=== PATIENT | male | born 1970 | race Two or more races ===

== ENCOUNTER 2018-07-12 00:01 | Day surgery (SDC) | payer BC ==
[~2018-07-12 00:01] MED LIST: CEPH500 PO; CHOL10002 PO; CIPR500 PO; DEXAMETHASONE; DIPH50 PO; DOCUSATE; Dulcolax5 MG PO; EPIN.3I; EPIN.3I IM; Flomax0.4 MG PO; HYDACE10B PO; HYDACE5 PO; HYDMOR2 PO; HYDPAM50 PO; KAPIDEX; KETO10 PO; LENZESS; LISI20 PO; LORA.5 PO; LORA10ER PO; METO10 PO; METR500 PO; MULT50L PO; Miralax17 GM PO; NAPR500 PO; NORT10 PO; OMEP20ER PO; ONDA4 PO; ONDA4ODT MM; OXYACE5T PO; OXYC5 PO; PROM25 PO; PSYL5.85P PO; Percocet 5-3251 EACH PO; Prednisone20 MG PO; RXHYDMOR2 PO; TAMS.4ER PO; TREXIMET; ZESTORETIC 20-121 EA PO
== END 2018-07-12 09:49 | disposition home or self-care (01) ==
LOC: ATC 00:01
DX: D69.1 Qualitative platelet defects (principal)
CPT/HCPCS: 96365; J2597

== ENCOUNTER → 2019-06-14 | Outpatient (CLI) | payer BC | END | disposition home or self-care (01) | LOC: LAB 20:02 → LAB SHORT 20:02 | DX: M54.5 Low back pain (principal) | CPT/HCPCS: 87086 ==

== ENCOUNTER 2020-04-26 10:03 | Emergency (ER) | payer BC ==
[~2020-04-26 10:03] MED LIST changes: +BUPRENORPHINE1 EAC9 TD; +OLMESARTAN MEDO40 MG PO
== END 2020-04-26 10:38 | disposition left against medical advice (07) ==
LOC: ER 10:03
DX: Z53.21 Procedure and treatment not carried out due to patient leaving prior to being seen by health care provider (principal)

== ENCOUNTER 2020-09-21 17:24 | Emergency (ER) | payer OTHER ==
[~2020-09-21] VITALS: Ht 170.2 cm; Wt 94.8 kg
[2020-09-21 17:57] LABS: Source, Urine Clean Catch
[2020-09-21 18:05] LABS: Appearance, Urine Clear (Clear); Bilirubin, Urine Neg (Neg); Blood, Urine 2+ (Neg); Color, Urine Yellow (P-Yellow); Glucose Qualitative, Urine Neg (Neg); Ketones, Urine Neg (Neg); Leukocyte Esterase, Urine 1+ (Neg); Nitrite, Urine Neg (Neg); Protein, Urine 1+ (Neg); Specific Gravity, Urine 1.025 (1.003-1.022); Urobilinogen, Urine 1+ (Normal)
[2020-09-21 18:05] LABS: BASOPHILS ABSOLUTE AUTO 0.02 K/mm3 (0.00-0.23); BASOPHILS PERCENT AUTO 0 % (0-2); EOSINOPHILS ABSOLUTE AUTO 0.07 K/mm3 (0.00-0.68); EOSINOPHILS PERCENT AUTO 1 % (0-6); Hematocrit 47.5 % (37.0-53.0); Hemoglobin 16.9 g/dL (13.5-17.5); IMMATURE GRAN ABSOLUTE AUTO 0.03 K/mm3 (0.00-0.10); IMMATURE GRAN PERCENT AUTO 0 % (0-1); LYMPHOCYTES ABSOLUTE AUTO 1.37 K/mm3 (0.84-5.20); LYMPHOCYTES PERCENT AUTO 16 % (21-46); MONOCYTES ABSOLUTE AUTO 0.71 K/mm3 (0.16-1.47); MONOCYTES PERCENT AUTO 8 % (4-13); Mean Corpuscular HGB 29.7 pg (26.0-34.0); Mean Corpuscular HGB Conc 35.6 g/dL (31.5-36.5); Mean Corpuscular Volume 84 fL (80-100); Mean Platelet Volume 12.7 fL (9.1-12.4); NEUTROPHILS ABSOLUTE AUTO 6.53 K/mm3 (1.96-9.15); NEUTROPHILS PERCENT AUTO 75 % (41-73); Platelet Count 146 K/mm3 (150-400); RDW Coefficient Variation 12.5 % (11.7-14.2); RDW Standard Deviation 37.9 fL (35.1-46.3); Red Blood Cell Count 5.69 M/mm3 (4.30-5.90); White Blood Cell Count 8.73 K/mm3 (4.00-11.30)
[2020-09-21] MEDS ORDERED: LISI5 PO (18:11)
[2020-09-21] MEDS ORDERED: Catapres0.2 MG PO (18:11)
[2020-09-21] MEDS ORDERED: HYDCHL12.5 (18:12)
[2020-09-21 18:32] LABS: Bacteria Few /hpf; Hyaline Casts 0-2 /lpf (0-2); Mucus Light (0-Heavy); Squamous Epithelial Cells Few /hpf (Few)
[2020-09-21 18:35] LABS: Alanine Aminotransfer (ALT/SGP 29 U/L (12-78); Albumin, Blood 3.6 g/dL (3.4-5.0); Albumin/Globulin Ratio 1.2 (0.8-1.8); Alk Phos 70 U/L (50-136); Anion Gap 4 mmol/L (6-16); Aspartate Aminotrans (AST/SGOT 17 U/L (12-37); Bilirubin, Total 0.5 mg/dL (0.1-1.0); Blood Urea Nitrogen 15 mg/dL (8-24); CO2, Blood 28 mmol/L (21-32); Calcium, Blood 8.9 mg/dL (8.5-10.1); Chloride, Blood 110 mmol/L (98-108); Creatinine, Blood 0.65 mg/dL (0.60-1.20); Globulin, Blood 3.1 g/dL (2.2-4.0); Glomerular Filtration Rate >60 (60-); Glucose, Blood 105 mg/dL (70-99); Potassium, Blood 3.4 mmol/L (3.5-5.5); Sodium, Blood 142 mmol/L (136-145); Total Protein, Blood 6.7 g/dL (6.4-8.2); Troponin I <0.015 ng/mL (0.000-0.040)
[2020-09-21] MEDS ORDERED: Pepcid20 MG PO (19:26)
== END 2020-09-21 19:39 | disposition home or self-care (01) ==
LOC: ER 17:24
PROVIDERS: Physician Assistant
DX: R07.9 Chest pain, unspecified (principal); Z79.899 Other long term (current) drug therapy
CPT/HCPCS: 71046; 80053; 81001; 83690; 84484; 85025; 87086; 93005; 93010; 99285-25

== ENCOUNTER 2020-09-27 22:20 | Emergency (ER) | payer OTHER ==
[~2020-09-27] VITALS: Ht 170.2 cm; Wt 90.7 kg
[~2020-09-27 22:20] MED LIST changes: +Catapres0.2 MG PO; +HYDCHL12.5; +LISI5 PO; +Pepcid20 MG PO
[2020-09-27 22:59] LABS: BASOPHILS ABSOLUTE AUTO 0.03 K/mm3 (0.00-0.23); BASOPHILS PERCENT AUTO 0 % (0-2); EOSINOPHILS ABSOLUTE AUTO 0.11 K/mm3 (0.00-0.68); EOSINOPHILS PERCENT AUTO 1 % (0-6); Hematocrit 52.9 % (37.0-53.0); IMMATURE GRAN ABSOLUTE AUTO 0.06 K/mm3 (0.00-0.10); IMMATURE GRAN PERCENT AUTO 1 % (0-1); LYMPHOCYTES ABSOLUTE AUTO 1.47 K/mm3 (0.84-5.20); LYMPHOCYTES PERCENT AUTO 13 % (21-46); MONOCYTES ABSOLUTE AUTO 0.56 K/mm3 (0.16-1.47); MONOCYTES PERCENT AUTO 5 % (4-13); Mean Corpuscular HGB 29.6 pg (26.0-34.0); Mean Corpuscular Volume 87 fL (80-100); NEUTROPHILS ABSOLUTE AUTO 8.94 K/mm3 (1.96-9.15); NEUTROPHILS PERCENT AUTO 80 % (41-73); Platelet Count 140 K/mm3 (150-400); RDW Coefficient Variation 12.9 % (11.7-14.2); Red Blood Cell Count 6.09 M/mm3 (4.30-5.90); White Blood Cell Count 11.17 K/mm3 (4.00-11.30)
[2020-09-27 23:01] LABS: Mean Platelet Volume 13.4 fL (9.1-12.4)
[2020-09-27 23:15] LABS: Alanine Aminotransfer (ALT/SGP 44 U/L (12-78); Albumin, Blood 4.3 g/dL (3.4-5.0); Albumin/Globulin Ratio 1.1 (0.8-1.8); Alk Phos 76 U/L (50-136); Anion Gap 6 mmol/L (6-16); Aspartate Aminotrans (AST/SGOT 24 U/L (12-37); Bilirubin, Total 0.5 mg/dL (0.1-1.0); Blood Urea Nitrogen 10 mg/dL (8-24); Bun/Creatinine Ratio 14.1 (12.0-20.0); CO2, Blood 27 mmol/L (21-32); Calcium, Blood 9.2 mg/dL (8.5-10.1); Chloride, Blood 107 mmol/L (98-108); Creatinine, Blood 0.71 mg/dL (0.60-1.20); Ethanol (Alcohol), Blood, Med 190 mg/dL; Globulin, Blood 3.9 g/dL (2.2-4.0); Glomerular Filtration Rate >60 (60-); Glucose, Blood 99 mg/dL (70-99); Potassium, Blood 3.6 mmol/L (3.5-5.5); Sodium, Blood 140 mmol/L (136-145); Total Protein, Blood 8.2 g/dL (6.4-8.2)
== END 2020-09-28 00:18 | disposition home or self-care (01) ==
LOC: ER 22:20
PROVIDERS: Emergency Medicine
DX: F10.129 Alcohol abuse with intoxication, unspecified (principal)
CPT/HCPCS: 80053; 85025; 96374; 99284-25; A9270; G0480; J2405; J7030

== ENCOUNTER → 2021-11-11 | Outpatient (CLI) | payer OTHER | END | disposition home or self-care (01) | LOC: LAB 17:12 → LAB SHORT 17:12 | DX: N39.0 Urinary tract infection, site not specified (principal) | CPT/HCPCS: 87086 ==

== ENCOUNTER → 2021-11-21 | Outpatient (CLI) | payer OTHER | END | disposition home or self-care (01) | LOC: LAB SHORT 16:54 → LAB 16:54 | DX: N39.0 Urinary tract infection, site not specified (principal) | CPT/HCPCS: 87086 ==

== ENCOUNTER 2023-06-21 00:09 | Observation (INO) | payer BC, OTHER ==
[~2023-06-21] VITALS: Ht 170.2 cm; Wt 113.4 kg
[2023-06-21 00:35] LABS: BASOPHILS ABSOLUTE AUTO 0.03 K/mm3 (0.00-0.23); BASOPHILS PERCENT AUTO 0 % (0-2); EOSINOPHILS PERCENT AUTO 1 % (0-6); Hematocrit 48.1 % (37.0-53.0); Hemoglobin 16.4 g/dL (13.5-17.5); IMMATURE GRAN ABSOLUTE AUTO 0.05 K/mm3 (0.00-0.10); IMMATURE GRAN PERCENT AUTO 1 % (0-1); LYMPHOCYTES ABSOLUTE AUTO 1.11 K/mm3 (0.84-5.20); LYMPHOCYTES PERCENT AUTO 12 % (21-46); MONOCYTES ABSOLUTE AUTO 0.54 K/mm3 (0.16-1.47); MONOCYTES PERCENT AUTO 6 % (4-13); Mean Corpuscular HGB 28.9 pg (26.0-34.0); Mean Corpuscular HGB Conc 34.1 g/dL (31.5-36.5); Mean Corpuscular Volume 85 fL (80-100); NEUTROPHILS ABSOLUTE AUTO 7.12 K/mm3 (1.96-9.15); NEUTROPHILS PERCENT AUTO 80 % (41-73); Platelet Count 118 K/mm3 (150-400); RDW Coefficient Variation 13.2 % (11.7-14.2); RDW Standard Deviation 41.1 fL (35.1-46.3); Red Blood Cell Count 5.68 M/mm3 (4.30-5.90); White Blood Cell Count 8.95 K/mm3 (4.00-11.30)
[2023-06-21] MEDS ORDERED: HYDROmorphone HCl/Pf 1MG SYR IV ONE (00:35)
[2023-06-21] MEDS ORDERED: Ondansetron HCl 2 MG / ML 2ML Vial IV ONE (00:35)
[2023-06-21 00:36] LABS: Mean Platelet Volume 13.6 fL (9.1-12.4)
[2023-06-21 00:52] LABS: Albumin, Blood 3.5 g/dL (3.4-5.0); Albumin/Globulin Ratio 1.1 (0.8-1.8); Bilirubin, Total 0.4 mg/dL (0.1-1.0); Bun/Creatinine Ratio 28.4 (12.0-20.0); Calcium, Blood 9.9 mg/dL (8.5-10.1); Creatinine, Blood 0.7 mg/dL (0.60-1.20); Globulin, Blood 3.2 g/dL (2.2-4.0); Magnesium, Blood 1.9 mg/dL (1.6-2.4); Potassium, Blood 3.9 mmol/L (3.5-5.5); Total Protein, Blood 6.7 g/dL (6.4-8.2)
[2023-06-21 00:52] LABS: Source, Urine Clean Catch
[2023-06-21 00:58] LABS: Appearance, Urine Cloudy (Clear); Bilirubin, Urine Neg (Neg); Blood, Urine 2+ (Neg); Glucose Qualitative, Urine Neg (Neg); Ketones, Urine Neg (Neg); Leukocyte Esterase, Urine Neg (Neg); Nitrite, Urine Neg (Neg); Protein, Urine Neg (Neg); Specific Gravity, Urine 1.015 (1.003-1.022); Urobilinogen, Urine NORM (Normal)
[2023-06-21 01:02] LABS: Color, Urine Pale Yellow (P-Yellow)
[2023-06-21 01:04] LABS: Bacteria Not Seen /hpf; Red Blood Cells, Urine 0-2 /hpf (0-2); Squamous Epithelial Cells Not Seen /hpf (Few); White Blood Cells, Urine 0-2 /hpf (0-5)
[2023-06-21 01:05] LABS: Mucus Mod (0-Heavy)
[2023-06-21] MEDS ORDERED: Droperidol 5 mg/2 ml Vial IV ONE (02:55)
[2023-06-21] MEDS ORDERED: Ampicillin Sod/Sulbactam Sod 3 GM in NS 100 ML IV ONE (03:05)
[2023-06-21] MEDS ORDERED: FentaNYL Citrate 50 MCG/ML 2 ML Injection IV PRN (03:10)
[2023-06-21] MEDS ORDERED: METFORMIN HCL500 M3 PO (03:18)
[2023-06-21] MEDS ORDERED: TAMSULOSIN HCL0.4 M1 PO (03:18)
[2023-06-21] MEDS ORDERED: POTASSIUM CITRA PO (03:18)
[2023-06-21 03:58] VITALS: BP 182/120
[2023-06-21] MEDS ORDERED: HydrALAZINE HCl 20 MG / ML 1ML Vial IV PRN (04:45)
[2023-06-21] MEDS ORDERED: Metoclopramide HCl 5MG / ML 2ML Vial IV PRN (04:45)
[2023-06-21] MEDS ORDERED: CloNIDine HCl 0.2 MG Tab PO SCH (04:50)
[2023-06-21] MEDS ORDERED: Lactated Ringer's 1,000 ML IV SCH (05:20)
[2023-06-21 07:23] VITALS: BP 147/110
[2023-06-21] MEDS ORDERED: Acetaminophen 325 MG TABLET PO PRN (07:50)
[2023-06-21] MEDS ORDERED: OxyCODONE HCL 5 MG TAB PO PRN (07:50)
[2023-06-21] MEDS ORDERED: Ondansetron HCl 2 MG / ML 2ML Vial IV PRN (07:50)
[2023-06-21] MEDS ORDERED: HYDROmorphone HCl/Pf 1MG SYR IV PRN (07:50)
[2023-06-21] MEDS ORDERED: FLU VACC QS2023-24(6MOS UP)/PF 60 MCG/0.5 ML SYRINGE IM SCH (07:55)
--- NOTE | 2023-06-21 07:59 | NUR ---
SHIFT SUMMARY PT ARRIVED TO ROOM 310 FROM ER AT 0357 VIA WHEELCHAIR. PT TRANSFERED HIMSELF INDEPENDENTLY TO HOSPITAL BED. A&OX4, VSS, HYPERTENSIVE WITH SYS >180, DYS >115, ON RA. CALLED DR AVALOS TO GET ORDERS AND MAKE HIM AWARE OF BP. SEE NEW ORDERS. HAS DISCOMFORT IN RUQ, REFUSED MEDICATION. C/O NAUSEA, REGLAN ADMINISTERED WITH GOOD RESULTS. PT REMAINS NPO FOR PROCEDURE THIS MORNING. S.O. AT BEDSIDE T/O NOC. INDEPENDENT IN ROOM. VOIDING IN URINAL, NO BM THIS SHIFT. BED IN LOWEST POSITION, CALL LIGHT WITHIN REACH.
[2023-06-21] MEDS ORDERED: Ketorolac Tromethamine 15mg Vial IV PRN (08:00)
[2023-06-21] MEDS ORDERED: Tamsulosin HCl 0.4 MG Cap PO SCH (09:00)
--- NOTE | 2023-06-21 10:08 | NUR ---
PATIENT LEFT AMA DUE TO FAMILY EMERGENCY. SPOKE WITH SUSAN IN DAY SURGERY WHO WILL NOTIFY DR. RIVAS. IV REMOVED AND PATIENT ADVISED TO FOLLOW UP WITH A PHYSICIAN.
== END 2023-06-21 10:07 | disposition left against medical advice (07) ==
LOC: ER 00:09 → MEDS 00:10 → SURS 00:10 → MEDS 03:55
PROVIDERS: Student in an Organized Health Care Education/Training Program; ADMIT Surgery
DX: K81.0 Acute cholecystitis (principal); F17.210 Nicotine dependence, cigarettes, uncomplicated; I10 Essential (primary) hypertension; Z88.8 Allergy status to other drugs, medicaments and biological substances; Z91.038 Other insect allergy status
CPT/HCPCS: 71046; 74177; 80053; 81001; 83690; 83735; 84484; 85025; 93005; 93010; 96365-59; 96375; 99285-25; A9270; G0378; J0295; J0360; J1170; J1790; J2405; J2765; J7120; Q9967